=== PATIENT | female | born 1960 | race Caucasian/White ===

== ENCOUNTER → 2016-10-01 | Outpatient (CLI) | payer BC | END | disposition home or self-care (01) | LOC: CFH 12:34 | PROVIDERS: ATTEND Nurse Practitioner | DX: M79.89 Other specified soft tissue disorders (principal) ==

== ENCOUNTER 2016-10-18 10:01 | Emergency (ER) | payer BC ==
[~2016-10-18] VITALS: Ht 167.6 cm; Wt 52.0 kg
[2016-10-18] MEDS ORDERED: SODIUM CHLORIDE 0.9% 1,000ML IVBOLUS ONE (10:30)
[2016-10-18] MEDS ORDERED: LORazepam 2 MG/ML, 1ML IVPush ONE (10:30)
[2016-10-18] MEDS ORDERED: SODIUM CHLORIDE FLUSH 10ML SYR IVF ONE (10:30)
[2016-10-18] MEDS ORDERED: LORazepam 2 MG/ML, 1ML ONE (10:46)
[2016-10-18 10:53] LABS: BLOOD UREA NITROGEN 24 mg/dL (7-18)
[2016-10-18 12:27] VITALS: BP 122/72
== END 2016-10-18 12:29 | disposition home or self-care (01) ==
LOC: ED 10:19
DX: F41.1 Generalized anxiety disorder (principal); G20 Parkinson's disease
CPT/HCPCS: 36415; 80048; 82040; 85025; 93005; 96360; 99285; J7030

== ENCOUNTER 2016-10-30 16:04 | Inpatient (IN) | payer BC ==
[~2016-10-30] VITALS: Ht 167.6 cm; Wt 53.0 kg
[2016-10-30] MEDS ORDERED: LORazepam 2 MG/ML, 1ML ONE (16:49)
[2016-10-30] MEDS ORDERED: LORazepam 2 MG/ML, 1ML IVPush ONE (17:00)
[2016-10-30] MEDS ORDERED: SODIUM CHLORIDE 0.9% 1,000ML IVBOLUS ONE (17:00)
[2016-10-30 17:19] LABS: BLOOD UREA NITROGEN 21 mg/dL (7-18)
[2016-10-30 17:25] LABS: HEMATOCRIT 43.1 % (34.6-47.8); HEMOGLOBIN 14.2 g/dL (11.7-16.4); WHITE BLOOD COUNT 5.9 x10^3/uL (3.4-10)
[2016-10-30 18:39] LABS: ACETAMINOPHEN < 2 mcg/mL (10-30)
[2016-10-30] MEDS ORDERED: ONDANSETRON ODT 4 MG PO PRN (20:00)
[2016-10-30] MEDS ORDERED: POLYETHYLENE GLYCOL 17 GM PACKET PO PRN (20:00)
[2016-10-30] MEDS ORDERED: ACETAMINOPHEN 325 MG TABLET PO PRN (20:00)
[2016-10-30] MEDS ORDERED: BISACODYL 10 MG SUPP PR PRN (20:00)
[2016-10-30 20:58] LABS: DAU SCREEN DISCLAIMER
[2016-10-30] MEDS ORDERED: ENTA200T22 PO (21:24)
[2016-10-30] MEDS ORDERED: CIPR500T3 PO (21:25)
[2016-10-30] MEDS ORDERED: CARB/LEVO PO (21:28)
[2016-10-30] MEDS ORDERED: LORazepam 1MG TABLET ONE (23:14)
[2016-10-30] MEDS: LORazepam 1MG TABLET PO PRN (23:22)
[2016-10-30] MEDS ORDERED: ZIPRASIDONE 20 MG INJ IM ONE (23:44)
[2016-10-31] MEDS ORDERED: ZIPRASIDONE 20 MG INJ IM ONE
[2016-10-31] MEDS ORDERED: DIAZEPAM 5 MG/ML, 2ML ONE (01:02)
[2016-10-31] MEDS ORDERED: DIAZEPAM 5 MG/ML, 10ML VIAL IV ONE (03:30)
[2016-10-31] MEDS ORDERED: BENZTROPINE 1 MG/ML, 2 ML IM ONE (03:30)
[2016-10-31] MEDS ORDERED: DIAZEPAM 5 MG/ML, 2ML IV ONE (04:00)
[2016-10-31] MEDS: SODIUM CHLORIDE 0.9% 1,000 ML IV SCH ×2 (04:16→20:46)
[2016-10-31] MEDS ORDERED: LORazepam 1MG TABLET ONE ×2 (07:51→16:28)
[2016-10-31] MEDS: LORazepam 1MG TABLET PO PRN ×3 (08:01→22:23)
[2016-10-31] MEDS ORDERED: SODIUM CHLORIDE 0.9% 500 ML IV SCH ×2 (10:30→11:30)
[2016-10-31] MEDS ORDERED: CARB1TAB22 PO (16:25)
[2016-10-31] MEDS ORDERED: CHOL20002 PO (16:46)
[2016-10-31] MEDS ORDERED: CHOL2000 PO (16:46)
[2016-10-31] MEDS ORDERED: LORA0.5T PO (16:46)
[2016-10-31] MEDS ORDERED: CALC1TAB84 PO (16:46)
[2016-10-31 18:59] VITALS: BP 119/81
[2016-10-31] MEDS: CARBIDOPA/LEVODOPA 25 MG/100 MG TABLET PO SCH (20:46)
[2016-10-31] MEDS: ENTACAPONE 200 MG TABLET PO SCH (20:46)
[2016-11-01] MEDS: CARBIDOPA/LEVODOPA 25 MG/100 MG TABLET PO SCH ×8 (01:46→23:54)
[2016-11-01 02:00] VITALS: BP 116/73
[2016-11-01] MEDS: LORazepam 1MG TABLET PO PRN ×2 (06:26→22:47)
[2016-11-01 07:55] VITALS: BP 102/55
[2016-11-01] MEDS: ENTACAPONE 200 MG TABLET PO SCH ×3 (09:00→20:57)
[2016-11-01] MEDS: CALCIUM/VITAMIN D3 250-125 TABLET PO SCH (09:10)
[2016-11-01] MEDS: CHOLECALCIFEROL 1,000 UNIT TABLET PO SCH (09:10)
[2016-11-01] MEDS: SODIUM CHLORIDE 0.9% 1,000 ML IV SCH ×3 (10:00→17:34)
[2016-11-01 12:04] VITALS: BP 103/66
[2016-11-01] MEDS: DOCUSATE 100 MG CAPSULE PO PRN (15:38)
[2016-11-01 20:00] VITALS: BP 116/70
[2016-11-02 02:00] VITALS: BP 121/68
[2016-11-02] MEDS: CARBIDOPA/LEVODOPA 25 MG/100 MG TABLET PO SCH ×7 (03:14→22:39)
[2016-11-02] MEDS: SODIUM CHLORIDE 0.9% 1,000 ML IV SCH ×2 (03:14→19:44)
[2016-11-02] MEDS: LORazepam 1MG TABLET PO PRN (05:43)
[2016-11-02 07:45] VITALS: BP 83/54
[2016-11-02 07:49] VITALS: BP 86/48
[2016-11-02 08:10] VITALS: BP_SYST 86; BP_SYST 87; BP_SYST 97; BP_DIAS 55; BP_DIAS 56; BP_DIAS 62
[2016-11-02] MEDS: ENTACAPONE 200 MG TABLET PO SCH ×3 (08:59→20:59)
[2016-11-02] MEDS: CHOLECALCIFEROL 1,000 UNIT TABLET PO SCH (09:00)
[2016-11-02] MEDS: CALCIUM/VITAMIN D3 250-125 TABLET PO SCH (09:00)
[2016-11-02] MEDS ORDERED: SODIUM CHLORIDE 0.9% 1,000 ML IV SCH (10:00)
[2016-11-02] MEDS ORDERED: LORazepam 0.5MG TABLET PO PRN (10:30)
[2016-11-02] MEDS: DOCUSATE 100 MG CAPSULE PO PRN (10:50)
[2016-11-02 15:30] VITALS: BP_SYST 113; BP_SYST 119; BP_SYST 126; BP_DIAS 75; BP_DIAS 77; BP_DIAS 79
[2016-11-02] MEDS ORDERED: ONDANSETRON ODT 4 MG PO PRN (15:30)
[2016-11-02] MEDS ORDERED: BISACODYL 10 MG SUPP PR PRN (15:30)
[2016-11-02] MEDS ORDERED: POLYETHYLENE GLYCOL 17 GM PACKET PO PRN (15:30)
[2016-11-02] MEDS ORDERED: DOCUSATE 100 MG CAPSULE PO PRN (15:30)
[2016-11-02] MEDS ORDERED: ACETAMINOPHEN 325 MG TABLET PO PRN (15:30)
[2016-11-02] MEDS: LORazepam 0.5MG TABLET PO PRN (18:20)
[2016-11-02 19:02] VITALS: BP 122/80
[2016-11-03] VITALS (9 sets, daily range): BP systolic 98–131; BP diastolic 62–79
[2016-11-03] MEDS: LORazepam 0.5MG TABLET PO PRN ×3 (02:26→18:22)
[2016-11-03] MEDS: SODIUM CHLORIDE 0.9% 1,000 ML IV SCH ×2 (03:54→20:56)
[2016-11-03] MEDS: CARBIDOPA/LEVODOPA 25 MG/100 MG TABLET PO SCH ×6 (06:04→20:55)
[2016-11-03] MEDS: CALCIUM/VITAMIN D3 250-125 TABLET PO SCH (08:41)
[2016-11-03] MEDS: CHOLECALCIFEROL 1,000 UNIT TABLET PO SCH (08:42)
[2016-11-03] MEDS: ENTACAPONE 200 MG TABLET PO SCH ×3 (08:42→20:55)
[2016-11-03] MEDS ORDERED: MIDODRINE 5 MG TABLET PO SCH (09:30)
[2016-11-03] MEDS: FLUDROCORTISONE 0.1 MG TABLET PO SCH (12:29)
[2016-11-03] MEDS ORDERED: TEMAZEPAM 15 MG CAPSULE PO PRN (17:00)
[2016-11-04] MEDS: CARBIDOPA/LEVODOPA 25 MG/100 MG TABLET PO SCH ×4 (00:06→09:11)
[2016-11-04] MEDS: LORazepam 0.5MG TABLET PO PRN ×2 (00:06→06:06)
[2016-11-04 00:59] VITALS: BP 101/64
[2016-11-04] MEDS: SODIUM CHLORIDE 0.9% 1,000 ML IV SCH ×2 (03:23→09:12)
[2016-11-04 07:50] VITALS: BP 116/71
[2016-11-04 07:51] VITALS: BP 105/68
[2016-11-04 07:52] VITALS: BP 94/74
[2016-11-04] MEDS: CHOLECALCIFEROL 1,000 UNIT TABLET PO SCH (09:10)
[2016-11-04] MEDS: FLUDROCORTISONE 0.1 MG TABLET PO SCH ×2 (09:10→09:30)
[2016-11-04] MEDS: ENTACAPONE 200 MG TABLET PO SCH (09:10)
[2016-11-04] MEDS: CALCIUM/VITAMIN D3 250-125 TABLET PO SCH (09:11)
[2016-11-04] MEDS ORDERED: TEMA15CA6 PO (10:33)
== END 2016-11-04 12:06 | disposition home or self-care (01) | DRG 312 ==
LOC: ED 19:19 → SUATTDRO 19:49 → EDIP 20:15 → 3NE 10-31 18:35
DX: I95.1 Orthostatic hypotension (principal); R45.851 Suicidal ideations; G20 Parkinson's disease; F32.9 Major depressive disorder, single episode, unspecified; R06.83 Snoring; F41.1 Generalized anxiety disorder; Z82.0 Family history of epilepsy and other diseases of the nervous system; Z88.5 Allergy status to narcotic agent
CPT/HCPCS: 36415; 71010; 80048; 80307; 80329; 81003; 82040; 82533; 84443; 85025; 87040; 96361; 96374; J3486; G0480; J2060; J7030; J7040